=== PATIENT | female | born 1955 | race Caucasian/White ===

== ENCOUNTER 2016-10-07 00:06 | Emergency (ER) ==
[2016-10-07 00:21] LABS: MANUAL DIFF NEEDED? NO
[2016-10-07] MEDS ORDERED: LABETALOL IV ONE (00:23)
--- NOTE | 2016-10-07 00:25 | ED EKG INTERP ---
EKG Interpretation - EKG Time of EKG reading by physician:: 00:14 EKG Read and Signed by:: Charlie Carroll EKG Interpretation (*Must complete 3 of following elements*): Abnormal Rate: 130 Rhythm: SINUS TACHYCARDIA W/ SHORT MS [place]: normal QRS: normal MS Interval: shortened ST Wave: normal Comments: LOW VOLTAGE QRS. ST DEPRESSION. NONSPECIFIC T WAVE ABNORMALITY Attestation - Scribe Verification/Attestation Scribe:: Kai Dixon Acting as Scribe for:: Philip Garcia Scribe documention review:: This chart was documented by a scribe and accurately reflects the service the provider performed and the decisions made by the provider.
--- NOTE | 2016-10-07 00:28 | PROVIDER DOCUMENTATION ---
HPI-Cardiac General - General Chief Complaint: Palpitations Stated Complaint: PALPITATIONS/H B/P Time Seen by Provider: 10/07/16 00:15 Source: patient Allergies/Adverse Reactions: Patient Allergies Allergy/AdvReac Type Severity Reaction Status Date / Time No Known Allergies Allergy Verified 10/07/16 00:16 Home Medications: Home Medication List Medication Instructions Recorded Confirmed Last Taken Type Clonazepam 0.25 mg PO QHS 10/07/16 10/07/16 10/06/16 22:00 History Escitalopram Oxalate [Lexapro] 0.5 - 1 tab PO DAILY 10/07/16 10/07/16 10/06/16 22:00 History Metoprolol Succinate E.r. [Toprol 50 mg PO DAILY 10/07/16 10/07/16 10/06/16 22: 00 History Xl] PRAVAstatin [Pravachol] 40 mg PO QHS 10/07/16 10/07/16 10/06/16 22:00 History Potassium Chloride [K-Tab ER] 20 meq PO BID AC #15 tablet.er 10/07/16 Unknown Rx - History of Present Illness-Cardiac Nature of Presenting Problem: 61 yof started having palpitations tonight after taking her night time medications. Pt worried that the supplements she took this morning is having a reaction with her medications. Pt denies any SOB, chest pain or any other symptoms at this time. Location: reports: substernal Quality of Pain: reports: none Severity in ED: mild Onset/Duration: abrupt Timing: getting worse Context/Activities at Onset: reports: rest Modifying Factors: improves with: nothing. worse with: analgesics, antacids, breathing, cold/heat therapy, coughing, defecating, eating, exercise, immobilization, lying down, massage, movement, other medication, palpation, rest , urinating, vomiting, other Palpitation Quality: fast/pounding heart beat History of arrythmia: reports: none Recent use of:: reports: other Nitro Today/Relief: reports: no nitro taken today Aspirin Treatment Today: reports: no aspirin today Prior Chest Pain/Cardiac Workup: reports: no prior chest pain Associated Symptoms: reports: denies symptoms Similar Symptoms Previously?: No Recently Seen Here or By Another Healthcare Provider: No Review of Systems - Adult - REVIEW OF SYSTEMS - ADULT Constitutional: reports: see HPI. denies: no symptoms reported, chills, fever, fatique, night sweats, weight gain, weight loss, other Eyes: reports: no symptoms reported Ears, Nose, Mouth & Throat: reports: no symptoms reported. denies: see HPI, ear discharge, ear pain, hearing loss, tinnitus, epistaxis, sinus problem, nose pain, loose teeth, mouth/dental pain, mouth swelling, hoarseness, throat pain, throat swelling, other Cardiovascular: reports: see HPI, palpitations. denies: no symptoms reported, chest pain, edema, heart murmur, irregular heart rate, orthopnea, poor circulation, PND, syncope, other Respiratory: reports: no symptoms reported. denies: see HPI, chronic cough, cough, dyspnea on exertion, excessive sputum production, hemoptysis, pleurisy, shortness of breath, wheezing, other Genitourinary: reports: no symptoms reported. denies: see HPI, dysuria, discharge, frequency, flank pain, frequent UTI's, hematuria, hesitency, incontinence, urinary retention, urgency, other Musculoskeletal: reports: no symptoms reported. denies: see HPI, bone pain, back pain, frequent leg cramps, joint pain, joint swelling, muscle aches, muscle weakness, neck pain, other Integumentary: reports: no symptoms reported. denies: see HPI, hives, hair loss , itching, mole changes, nail changes, rash, skin sores/ulcer, skin thickening, other Neurological: reports: no symptoms reported. denies: see HPI, ataxia, dizziness /vertigo, headache/migraines, loss of balance, numbness, paresthesia, seizure, slurred speech, syncope, tremors, other Psychiatric: reports: no symptoms reported. denies: see HPI, anxiety, anti- depressant use, alcohol/drug dependence, depression, emotional problems, insomnia, panic attacks, suicidal thoughts, other All Other Systems: Reviewed and Negative Past History - Adult - PAST MEDICAL HISTORY-ADULT Review of Records: reports: Old Records Reviewed, Nursing Assessment Review, Medications Reviewed, Social history reviewed & non-contributory. Physical Exam-General - PHYSICAL EXAM-ADULT Initial Vital Signs Reviewed: Yes - CONSTITUTIONAL General Appearance: appears well, alert, no apparent distress. negative: mild distress, moderate distress, severe distress, cachetic, obese, thin, anxious, lethargic, slow to respond, obtunded, combative, other - EYES Eyes: PERRL/EOMI, pink conjunctivae. negative: fundi clear, no AV nicking, anisocoria, conjuctival exudate, EOM palsy, meningismus, pale conjunctivae, photophobia, sclera injected, scleral icterus, subconjunctival hemorrhage, sunken eyes, other - HEAD, EARS, NOSE, MOUTH & THROAT HENMT: normocephalic/atraumatic, moist mucous membranes, normal ENT inspection, TMs normal, pharynx normal. negative: angioedema, dental decay, hearing deficit , pharyngeal erythema, tonsillar exudate, TM abnormal, TM obscurred by cerumen, frontal tenderness, maxillary tenderness, other - NECK Neck: non-tender, full range of motion, supple, normal inspection. negative: Brudzinski's sign, carotid bruit, C-spine tenderness, limited range of motion, lymphadenopathy, meningismus, trachial deviation, tender lateral, tender midline , thyromegaly, other - RESPIRATORY Respiratory: chest non-tender, lungs clear, normal breath sounds, no pleuratic chest pain, no respiratory distress, no accessory muscle use. negative: respiratory distress, decreased breath sounds, accessory muscle use, crackles, rales, rhonchi, stridor, wheezing, dull on percussion, prolonged expiration, pain on inspiration, plerual rub, retractions, splinting, decreased rate, increased rate, crepitus, other - CARDIOVASCULAR Cardiovascular: normal peripheral pulses, no edema, no gallop, no JVD, no murmur , tachycardia. negative: regular rate, rhythm, JVD, bradycardia, diastolic murmur, systolic murmur, gallop/S3, gallop/S4, extra beats, friction rub, irregularly irregular, PMI displaced laterally, other - CHEST (BREASTS) Chest/Breast: deferred - GASTROINTESTINAL (ABDOMEN) Abdominal Exam: normal bowel sounds, non tender, soft, no organomegaly, no pulsatile mass. negative: abdominal bruit, abnormal bowel sounds, distended, guarding, rigid, rebound, tenderness, hernia, mass, hepatomegaly, spleenomegaly , McBurney's point tenderness, Dumont's sign, obturator sign, prominent aortic pulsations, psoas, Rovsing's sign, other - GENITOURINARY Female Genitalia/Pelvic Exam: deferred - LYMPHATIC Lymphatic: no adenopathy. negative: axilla node tender, cervical node tenderness, inguinal node tender, enlargement, striations, streaking, other - MUSCULOSKELETAL Back Exam: normal inspection, no CVA tenderness, no vertebral tenderness. negative: CVA tenderness, decreased range of motion, ecchymosis, kyphosis, lordosis, muscle spasm, scoliosis, swelling, vertebral tenderness, other Extremity: normal range of motion, non-tender, normal gait, normal inspection - SKIN Integumentary: normal color, normal turgor, warm/dry - NEUROLOGIC Neurologic: grossly normal - PSYCHIATRIC Psych/Mental Status: oriented x 3 Progress - PLAN OF CARE/RESULTS Progress/Plan/Lab Results: Laboratory Tests 10/07/16 10/07/16 10/07/16 00:10 00:10 00:10 WBC RBC Hgb Hct MCV MCH MCHC RDW Std Deviation Plt Count MPV Immature Gran % (Auto) Neut % (Auto) Lymph % (Auto) [place] % (Auto) Eos % (Auto) Baso % (Auto) Immature Gran # (Auto) Neut # (Auto) Lymph # (Auto) [place] # (Auto) Eos # (Auto) Baso # (Auto) Sodium 143 Potassium 2.8 L Chloride 104 Carbon Dioxide 25 Anion Gap 14 BUN 13 Creatinine 1.0 H Estimated GFR/1.73 m2 56 BUN/Creatinine Ratio 13 Glucose 125 H Calculated Osmolality 287 Calcium 10.0 Magnesium 2.0 Total Bilirubin 0.20 AST 26 ALT 14 Alkaline Phosphatase 96 Creatine Kinase 93 Troponin T < 0.010 Wlm-H-Mmajukrshxd Pept 58 Total Protein 7.6 Albumin 4.6 Globulin 3.0 Albumin/Globulin Ratio 2.0 10/07/16 00:10 WBC 11.88 H RBC 4.52 Hgb 13.4 Hct 41.0 MCV 90.7 MCH 29.6 MCHC 32.7 L RDW Std Deviation 12.9 Plt Count 262 MPV 10.4 Immature Gran % (Auto) 0.2 Neut % (Auto) 37.6 L Lymph % (Auto) 51.0 [place] % (Auto) 9.1 Eos % (Auto) 1.7 Baso % (Auto) 0.4 Immature Gran # (Auto) 0.02 Neut # (Auto) 4.47 Lymph # (Auto) 6.06 H [place] # (Auto) 1.08 H Eos # (Auto) 0.20 Baso # (Auto) 0.05 Sodium Potassium Chloride Carbon Dioxide Anion Gap BUN Creatinine Estimated GFR/1.73 m2 BUN/Creatinine Ratio Glucose Calculated Osmolality Calcium Magnesium Total Bilirubin AST ALT Alkaline Phosphatase Creatine Kinase Troponin T Vih-S-Woiwtwneyfb Pept Total Protein Albumin Globulin Albumin/Globulin Ratio Orders Category Date Time Status Cardiac Monitoring DIRECTED Care 10/07/16 00:15 Active Oxygen Therapy- ED Nursing DIRECTED Care 10/07/16 00:15 Active Saline Loc NOW Care 10/07/16 00:15 Active CHEST-PORTABLE [RAD] Stat Exams 10/07/16 00:16 Taken CBC WITH ELECTRONIC DIFF [HEME] Stat Lab 10/07/16 00:10 Completed CK PROFILE [SP CHEM] Stat Lab 10/07/16 00:10 Completed COMPREHENSIVE METABOLIC PANEL [CHEM] Stat Lab 10/07/16 00:[address] D-D[address]ER [address] [COAG] Stat Lab 10/07/16 00:10 Received MAGNESIUM [CHEM] Stat Lab 10/07/16 00:10 Completed PRO B-NATRIURETIC PEPTIDE Stat Lab 10/07/16 00:10 Com[address]IME WITH INR PL [COAG] Stat Lab 10/07/16 00:[address] [COAG] Stat Lab 10/07/16 00:10 Received TROPONIN T Stat Lab 10/07/16 00:10 Completed Labetalol Med 10/07/16 00:23 Discontinued 20 mg IV NOW ONE Potassium Chloride E.r. [Klor-Con] Med 10/07/16 01:36 Discontinued 40 meq PO NOW ONE EKG [EKG] Stat Ther 10/07/16 00:15 Ordered Vital Signs Temp Pulse Resp BP Pulse Ox 10/07/16 00:10 97.9 F 135 H 18 208/115 98 No Known Allergies Allergy (Verified 10/07/16 00:16) Clonazepam 0.25 mg PO QHS 10/07/16 Escitalopram Oxalate [Lexapro] 0.5 - 1 tab PO DAILY 10/07/16 Metoprolol Succinate E.r. [Toprol Xl] 50 mg PO DAILY 10/07/16 PRAVAstatin [Pravachol] 40 mg PO QHS 10/07/16 Laboratory 10/07/16 10/07/16 10/07/16 00:10 00:10 00:10 WBC 11.88 H RBC 4.52 Hgb 13.4 Hct 41.0 MCV 90.7 MCH 29.6 MCHC 32.7 L RDW Std Deviation 12.9 Plt Count 262 MPV 10.4 Immature Gran % (Auto) 0.2 Neut % (Auto) 37.6 L Lymph % (Auto) 51.0 [place] % (Auto) 9.1 Eos % (Auto) 1.7 Baso % (Auto) 0.4 Immature Gran # (Auto) 0.02 Neut # (Auto) 4.47 Lymph # (Auto) 6.06 H [place] # (Auto) 1.08 H Eos # (Auto) 0.20 Baso # (Auto) 0.05 Sodium Potassium Chloride Carbon Dioxide Anion Gap BUN Creatinine Estimated GFR/1.73 m2 BUN/Creatinine Ratio Glucose Calculated Osmolality Calcium Magnesium Total Bilirubin AST ALT Alkaline Phosphatase Creatine Kinase Troponin T < 0.010 Jtb-T-Oluditnhalu Pept 58 Total Protein Albumin Globulin Albumin/Globulin Ratio 10/07/16 00:10 WBC RBC Hgb Hct MCV MCH MCHC RDW Std Deviation Plt Count MPV Immature Gran % (Auto) Neut % (Auto) Lymph % (Auto) [place] % (Auto) Eos % (Auto) Baso % (Auto) Immature Gran # (Auto) Neut # (Auto) Lymph # (Auto) [place] # (Auto) Eos # (Auto) Baso # (Auto) Sodium 143 Potassium 2.8 L Chloride 104 Carbon Dioxide 25 Anion Gap 14 BUN 13 Creatinine 1.0 H Estimated GFR/1.73 m2 56 BUN/Creatinine Ratio 13 Glucose 125 H Calculated Osmolality 287 Calcium 10.0 Magnesium 2.0 Total Bilirubin 0.20 AST 26 ALT 14 Alkaline Phosphatase 96 Creatine Kinase 93 Troponin T Cem-A-Edivohlzixn Pept Total Protein 7.6 Albumin 4.6 Globulin 3.0 Albumin/Globulin Ratio 2.0 - XRAY 1 XRAY Study: Chest Impression: Normal (Normal per Dr. Carroll.) Departure - Departure Time of Disposition Order: 01:45 DIAGNOSIS: Heart palpitations, Hypokalemia Disposition: HOME 01 Certified Medical Emergency: Emergent Condition: Stable Additional Instructions: follow up with primary physician to have potassium rechecked. ED Follow Up Instructions: You have been treated by a care provider in the Emergency Department. These instructions are being provided to you so you can have an understanding of how to care for yourself upon discharge. Upon discharge from the Emergency Department, you are responsible for making arrangements for follow-up care by a physician of your choice. Take all prescribed medications as directed. Return to the Emergency Department immediately for any new or worsening symptoms. You may call the Physician Referral phone number at [phone] to obtain a list of Physicians who are taking new patients. Prescriptions: Potassium Chloride [K-Tab ER] 20 meq PO BID AC #15 tablet.er Referrals: Brett Hughes MD [Primary Care Provider] - Attestation - Physician/ WALTER Attestation Patient care was provided by Advanced Practice Provider:: Yes Advanced Practice Provider:: Philip Garcia Advanced Practice Provider documentation review:: The Mid-level provider documentation, treatment plan and medical decision making was reviewed by the physician who agrees with all treatment and medical decision making by the MLP. Physician Attestation - Physician Attestation I, the provider, attest to the following statement:: Philip Garcia Physician documentation Attestation:: This documentation recorded by the scribe accurately reflects the service I personally performed and the decisions made by me.
[2016-10-07 00:31] LABS: BASO% 0.4 % (0.0-0.8); EOS% 1.7 % (0.0-10.0); HEMOGLOBIN 13.4 g/dL (12.0-16.0); IMM GRAN# 0.02 X1000 (0.0-0.04); IMM GRAN% 0.2 % (0.0-0.5); LYMPH# 6.06 X1000 (1.2-3.4); MCH 29.6 PG (27-31); MCHC 32.7 g/dL (33-37); MCV 90.7 FL (81-99); MONO# 1.08 X1000 (0.11-0.59); MONO% 9.1 % (1.7-9.3); MPV 10.4 FL (7.4-10.4); NEUT% 37.6 % (42.2-75.2); PLT 262 X1000 (130-400); RBC 4.52 XMIL (4.2-5.4)
[2016-10-07 00:54] LABS: ALBUMIN 4.6 g/dL (3.5-5.0); POTASSIUM 2.8 mmol/L (3.5-5.1); TOTAL BILIRUBIN 0.2 mg/dL (0.20-1.00); TOTAL PROTEIN 7.6 g/dL (6.3-8.3)
[2016-10-07] MEDS ORDERED: KLOR-CON PO ONE (01:36)
[2016-10-07 01:44] LABS: INR 0.87 (0.86-1.15); PROTIME 12.2 Seconds (12.1-15.5)
[2016-10-07 03:17] VITALS: BP 160/97
--- NOTE | 2016-10-07 06:07 | EKG Report ---
Test Performed on : 10/07/2016 00:13:02 AM Test Reason : CHEST PAIN Blood Pressure : / mmHG Vent. Rate : 130 BPM Atrial Rate : 131 BPM P-R Int : 104 ms QRS Dur : 070 ms QT Int : 378 ms P-R-T Axes : 000 030 077 degrees QTc Int : 556 ms Sinus tachycardia. with short MI Low voltage QRS ST depression, consider subendocardial injury Nonspecific T wave abnormality Abnormal ECG No previous ECGs available Unconfirmed Result
--- NOTE | 2016-10-07 08:08 | Diag Imaging Result Document ---
PROCEDURE NAME: CHEST-PORTABLE - 10/07/2016 PORTABLE CHEST: COMPARISON: Compared to 04/16/2016. FINDINGS: The lungs are well expanded. The heart is not enlarged. The vessels are not distended. No pneumonia. No pleural effusions identified. IMPRESSION: Negative chest.
== END 2016-10-07 03:17 | disposition home or self-care (01) ==
LOC: P.ED 00:06
DX: R00.2 Palpitations (principal); E87.6 Hypokalemia; R94.31 Abnormal electrocardiogram [ECG] [EKG]; Z79.899 Other long term (current) drug therapy
CPT/HCPCS: 71010; 80053; 82550; 83735; 83880; 84484; 85025; 85379; 85610; 85730; 93005; 96374